=== PATIENT | female | born 1965 | race African-American/Black ===

== ENCOUNTER → 2019-04-01 | Outpatient (CLI) | payer BC, MEDICARE ==
[2015-03-22 07:35] VITALS: BP 136/75
[~2019-04-01] MED LIST: AMLO2.5T5 PO; BECL10.62 IH; BUDE10.22 IH; CITA20TA9 PO; CLON0.1T PO; HYDR-3164 PO; LORA0.5T PO; LOSA-73 PO; MULT1TAB52 PO; NAPR500T8 PO; OXYC1TAB15 PO; VENL37.56 PO
--- NOTE | 2019-04-01 15:14 | RAD ---
Ultrasound-guided left thyroid biopsy, 04/01/2019: History: Left thyroid nodule Previous imaging demonstrated a predominantly solid left thyroid nodule with a cystic component centrally. Under local anesthesia, aseptic conditions and sonographic guidance 4 separate 25-gauge aspirates were obtained from the solid components of this nodule. The materials were sent to pathology for evaluation. Hemostasis was obtained. The patient tolerated the procedure well and left the department in good condition. The pathology results are pending.
--- NOTE | 2019-04-03 17:07 | PATHOLOGY ---
Note [facility] Accession Number: [id number] TESTS RESULT FLAG UNITS REF RANGE LAB Clinician Provided Cytology Information No. of containers..01 Other (Miscellaneous) Source: LEFT THYROID DIAGNOSIS: LEFT THYROID NEGATIVE FOR MALIGNANT CELLS. BETHESDA CATEGORY II. BENIGN FOLLICULAR NODULE. CLUSTERS OF FOLLICULAR CELLS, SCANT COLLOID, AND RED BLOOD CELLS PRESENT. THIS INTERPRETATION INCLUDES EVALUATION OF A CELL BLOCK. Signed out by: 02 Chau Zhang MD, Pathologist NPI- [id number] Performed by: Keo Marshall, Ambulatory Services Representative ([facility]) Gross description: 01 30ML, RED, CLOUDY /LCS FLAG LEGEND: L-Low Normal,H-High Normal,LL-Alert Low,HH-Alert High <-Panic Low,>-Panic High,A-Abnormal,AA-Critical Abnormal Performed at: [address] [place] [address] Finn Edward MD, 02 [facility] [address] [place] [address] Chau Zhang MD, Specimen Comment: A courtesy copy of this report has been sent to Specimen Comment: [phone]. Specimen Comment: Report sent to Specimen Comment: A duplicate report has been generated due to demographic updates. Performed at: [address], [place], [place] [id number] MD Finn Edward MD Phone: [phone]
== END | disposition home or self-care (01) ==
LOC: US 13:31
PROVIDERS: ATTEND Surgery
DX: E04.1 Nontoxic single thyroid nodule (principal)
CPT/HCPCS: 10005; 76942; 88173; 88305

== ENCOUNTER → 2019-04-21 | Outpatient (CLI) | payer BC, MEDICARE ==
[2015-03-22 07:35] VITALS: BP 136/75
[2019-04-21 13:50] LABS: BASO % 0 % (0-3); EOS # 0.1 x10^3/uL (0.0-0.7); EOS % 2 % (0-3); HEMATOCRIT 43.5 % (36.0-47.0); HEMOGLOBIN 14.2 g/dL (12.0-15.5); LYMPH # 2.5 x10^3/uL (1.0-4.8); LYMPH % 48 % (24-48); MEAN CORPUSCULAR HEMOGLOBIN 30 pg (25-35); MEAN CORPUSCULAR HGB CONC 33 g/dL (31-37); MEAN CORPUSCULAR VOLUME 93 fL (79-100); MONO # 0.4 x10^3/uL (0.0-1.1); MONO % 8 % (0-9); NEUT # 2.2 x10^3uL (1.8-7.7); NEUT % 43 % (31-73); PLATELET COUNT 301 x10^3/uL (140-400); RED BLOOD COUNT 4.69 x10^6/uL (3.50-5.40); RED CELL DISTRIBUTION WIDTH 13.9 % (11.5-14.5); WHITE BLOOD COUNT 5.2 x10^3/uL (4.0-11.0)
[2019-04-21 14:02] LABS: ALBUMIN 4.1 g/dL (3.4-5.0); CALCIUM 9.9 mg/dL (8.5-10.1); GFR 69.9; POTASSIUM 3.6 mmol/L (3.5-5.1)
== END | disposition home or self-care (01) ==
LOC: SURGPAT 13:11
PROVIDERS: ATTEND Surgery
DX: Z01.818 Encounter for other preprocedural examination (principal); E04.2 Nontoxic multinodular goiter
CPT/HCPCS: 36415; 80048; 82040; 85025

== ENCOUNTER 2019-04-28 06:27 | Observation (INO) | payer BC, MEDICARE ==
[2019-04-28] VITALS (13 sets, daily range): BP systolic 95–126; BP diastolic 48–92
[~2019-04-28] VITALS: Ht 154.9 cm; Wt 75.5 kg
[~2019-04-28 06:27] MED LIST changes: -OXYC1TAB15 PO
[2019-04-28] MEDS ORDERED: BUPIVAC MPF-EPI 0.5%-1:200000 30 ML VIAL. ONE (06:32)
[2019-04-28] MEDS ORDERED: HYDROmorphone 2 MG/ML VIAL IV PRN ×2 (07:00→09:45)
[2019-04-28] MEDS ORDERED: IV RINGERS,LACTATED 1000ML 1,000 ML IV SCH (07:00)
[2019-04-28] MEDS ORDERED: ONDANSETRON PF 4 MG/2 ML VIAL. IV PRN ×2 (07:00→09:45)
[2019-04-28] MEDS ORDERED: MORPHINE SULFATE 2 MG/ML VIAL. IV PRN (07:00)
[2019-04-28] MEDS ORDERED: fentaNYL PF VIAL 100 MCG/2 ML VIAL IV PRN (07:00)
[2019-04-28] MEDS ORDERED: PROCHLORPERAZINE 10 MG/2 ML VIAL. IV PRN (07:00)
[2019-04-28] MEDS ORDERED: ROCURONIUM 100 MG/10 ML VIAL. ONE (07:34)
[2019-04-28] MEDS ORDERED: MIDAZOLAM HCL/PF 2 MG/2 ML VIAL. ONE (07:34)
[2019-04-28] MEDS ORDERED: fentaNYL PF VIAL 250 MCG/5 ML VIAL ONE (07:35)
[2019-04-28] MEDS ORDERED: PROPOFOL 20 ML IV ONE (08:27)
[2019-04-28] MEDS ORDERED: DEXAMETHASONE SOD PHOS 4 MG/ML VIAL ONE (08:27)
[2019-04-28] MEDS ORDERED: ONDANSETRON PF 4 MG/2 ML VIAL. ONE (08:27)
[2019-04-28] MEDS ORDERED: LIDOCAINE 2% PF 5 ML VIAL. ONE (08:27)
[2019-04-28] MEDS ORDERED: NEOSTIGMINE METHYLSULFATE 5 MG/5 ML SYRINGE. ONE (08:47)
[2019-04-28] MEDS ORDERED: GLYCOPYRROLATE 1 MG/5 ML VIAL. ONE (08:47)
[2019-04-28] MEDS ORDERED: fentaNYL PF VIAL 100 MCG/2 ML VIAL ONE (09:30)
[2019-04-28] MEDS: fentaNYL PF VIAL 100 MCG/2 ML VIAL IV PRN ×2 (09:31→09:42)
[2019-04-28] MEDS ORDERED: diphenhydrAMINE HCL 25 MG CAPSULE PO PRN (09:45)
[2019-04-28] MEDS ORDERED: BENZOCAINE/MENTHOL LOZENGE. PO PRN (09:45)
[2019-04-28] MEDS ORDERED: LORazepam 0.5 MG TABLET PO PRN (09:45)
[2019-04-28] MEDS ORDERED: PHENOL ORAL SPRAY 177ML BOTTLE. PO PRN (09:45)
[2019-04-28] MEDS ORDERED: 0.9 % SODIUM CHLORIDE 10 ML DISP.SYRIN. IV PRN (09:45)
--- NOTE | 2019-04-28 09:54 | PDOC ---
BRIEF OPERATIVE NOTE Date: Apr 28, 2019 Pre-Op Diagnosis left thyroid nodule Post-Op Diagnosis same Procedure Performed left hemithyroidectomy Surgeon Gabriel Extrusion Line Operator Viri StoddardA Anesthesia Type: General (with NIMS) Blood Loss 10cc IV Fluid 600cc Specimens Obtained left thyroid lobe Findings soft nodule left lower lobe Complications none Operative Note WK # [id number] AMERICA LAN MD Apr 28, 2019 09:54
[2019-04-28] MEDS: amLODIPine BESYLATE 5 MG TABLET PO SCH (10:00)
[2019-04-28] MEDS: cloNIDine HCL 0.1 MG TABLET PO SCH ×2 (10:00→21:17)
[2019-04-28] MEDS: LOSARTAN POTASSIUM 25 MG TABLET. PO SCH (10:00)
[2019-04-28] MEDS: DOCUSATE SODIUM 100 MG CAPSULE. PO SCH ×2 (10:00→21:11)
--- NOTE | 2019-04-28 10:19 | OP ---
DATE OF SURGERY: 04/28/2019 PREOPERATIVE DIAGNOSIS: Left thyroid nodule. POSTOPERATIVE DIAGNOSIS: Left thyroid nodule. PROCEDURE: Left hemithyroidectomy. SURGEON: Rodolfo Lan MD ASSISTANTS: Dr. Lopez, TEMO Cisneros ANESTHESIA: General endotracheal with NIMS. BLOOD LOSS: 10. INTRAVENOUS FLUIDS: 600. INDICATIONS: The patient is a 53-year-old lady with a nodule in the left lower lobe of the thyroid, brought for excision. After discussion of treatment options, she prefers removal of the left side only. OPERATIVE FINDINGS: The gland was soft. There was some prominence in the lower aspect consistent with the previously biopsied nodule. DESCRIPTION OF PROCEDURE: The patient brought to the operating suite, given a general endotracheal anesthetic with NIMS and the neck prepped and draped after placed in extension. Necklace incision was made after infiltrating with 0.5% Marcaine and epinephrine. Dissection carried down to the cervical fascia. Superior and inferior skin flaps developed with cautery dissection. Fascia opened in the midline and the strap muscles were reflected off the left side of the gland. Superior pole vessels were isolated, ligated, and divided. The gland was rotated toward the midline by taking down attachments with cautery, LigaSure, or tying with Vicryl as needed. Care was taken to preserve parathyroid tissue and avoid the left recurrent laryngeal nerve. When the lobe was removed, the area checked for hemostasis while the patient given a Valsalva to 30 cm of water. No bleeding seen. Neck taken out of extension and the cervical fascia closed with interrupted inverted 3-0 chromic. Subcutaneous tissue approximated with interrupted inverted 3-0 chromic. Skin closed with a subcuticular 4-0 Prolene. Steri-Strips and a sterile dressing applied. The patient awakened from her anesthetic and taken to the postop area in stable condition where she was able to speak. RODOLFO LAN MD DR: ASHANTI/baldemar JOB#: [id number] / [id number]
--- NOTE | 2019-04-28 10:30 | NUR ---
Patient arrived per bed around 1012. Trell at bedside. SCDs and ALEA roque on. Patient on 2L oxygen per NC. Pain rating at a 6 in neck with recent medication given in PACU. She states she already took her BP medications this morning so they were not given again upon admission to the floor. She is alert and oriented appropriately at her baseline per but is still quite drowsy from surgery and medications. Dressing to left neck dry/intact. IV in left hand patent with fluids infusing. Will continue to monitor.
[2019-04-28] MEDS: ENOXAPARIN 40 MG/0.4 ML SYRINGE. SQ SCH (10:37)
[2019-04-28] MEDS: POTASSIUM CL 20MEQ-0.45% NACL 1,000 ML IV SCH (10:38)
[2019-04-28] MEDS: oxyCODONE/APAP 5/325 1 TAB TABLET PO PRN ×3 (11:19→20:13)
[2019-04-28] MEDS: ALBUTEROL SULFATE 2.5 MG/3 ML NEBU. NEB SCH ×2 (11:31→20:19)
[2019-04-28] MEDS: BUDESONIDE 0.5 MG/2 ML NEBU. NEB SCH ×2 (11:31→20:20)
[2019-04-28] MEDS: VENLAFAXINE 75 MG TABLET. PO SCH ×2 (12:13→21:11)
[2019-04-28] MEDS ORDERED: BECLOMETHASONE DIPROPIONATE 10.6 GM IH SCH (21:00)
[2019-04-29] MEDS: oxyCODONE/APAP 5/325 1 TAB TABLET PO PRN ×4 (00:06→12:42)
[2019-04-29] MEDS: POTASSIUM CL 20MEQ-0.45% NACL 1,000 ML IV SCH ×2 (00:06→12:18)
[2019-04-29 02:22] VITALS: BP 107/62
[2019-04-29 02:59] VITALS: BP 118/72
[2019-04-29 06:21] VITALS: BP 111/63
[2019-04-29] MEDS: ALBUTEROL SULFATE 2.5 MG/3 ML NEBU. NEB SCH ×3 (07:14→12:48)
[2019-04-29] MEDS: BUDESONIDE 0.5 MG/2 ML NEBU. NEB SCH (07:14)
[2019-04-29] MEDS: LOSARTAN POTASSIUM 25 MG TABLET. PO SCH (09:00)
[2019-04-29] MEDS ORDERED: NON FORMULARY ITEM (Budesonide/Formoterol Fumarate (Symbicort 80-4.5 Mcg Inhaler) 2 PUFF) IH SCH (09:00)
[2019-04-29] MEDS: cloNIDine HCL 0.1 MG TABLET PO SCH (09:00)
[2019-04-29] MEDS: amLODIPine BESYLATE 5 MG TABLET PO SCH (09:00)
--- NOTE | 2019-04-29 09:00 | NUR ---
Pt refused bp medications this am. BP 110/66 states that is low for her. Will recheck BP at noon.
[2019-04-29] MEDS: DOCUSATE SODIUM 100 MG CAPSULE. PO SCH (09:01)
[2019-04-29] MEDS: VENLAFAXINE 75 MG TABLET. PO SCH (09:02)
[2019-04-29] MEDS: ENOXAPARIN 40 MG/0.4 ML SYRINGE. SQ SCH (09:04)
--- NOTE | 2019-04-29 09:05 | PDOC ---
VERONIQUE GAMBOA APRN 04/29/19 0905: SURGICAL PROGRESS NOTE Subjective tolerating diet, able to swallow ok some voice hoarseness neck sore Vital Signs Vital Signs Date Time Temp Pulse Resp B/P (MAP) Pulse Ox O2 Delivery O2 Flow Rate FiO2 04/29/19 07:14 94 Room Air 04/29/19 06:21 98.0 79 20 111/63 (79) 98.0 04/29/19 05:15 2.0 I&O Intake and Output 04/29/19 06:59 Intake Total 1400 ml Output Total 3110 ml Balance -1710 ml Intake Oral 750 ml IV Total 650 ml Output Urine Total 3100 ml Estimated Blood Loss 10 ml General: Alert, Oriented X3, Cooperative, No acute distress HEENT: Other (incision c/d/i, no erythema, no significant swelling ) Assessment/Plan s/p left hemithyroidectomy home after lunch FU 1 week script on chart AMERICA LAN MD 04/29/19 1209: SURGICAL PROGRESS NOTE Assessment/Plan pt seen as above f/u ten days VERONIQUE GAMBOA APRN Apr 29, 2019 09:05 AMERICA LAN MD Apr 29, 2019 12:09
[2019-04-29] MEDS ORDERED: OXYC1TAB15 PO (09:06)
--- NOTE | 2019-04-29 09:08 | DISCH ---
DISCHARGE INSTRUCTIONS Condition on Discharge Condition on Discharge: Stable Activity After Discharge Activity Instructions for Disc: Activity as tolerated, Avoid exertion Lifting Instructions after Dis: No heavy lifting, No pulling or pushing, Do not lift >10 pounds Driving Instructions after Dis: Do not drive today (no driving while taking narcotics ) Weight Bearing Status after Di: No restrictions Diet after Discharge Diet after Discharge: GI Soft, Regular Wound Incision Care Wound/Incision Care: May get incision wet, No wound care needed Contacting the [facility] after DC Call your doctor for: Concerns you may have Follow-Up Follow up with: Dr Rios 1 week, call to schedule [phone] Treatment/Equipment after DC Adaptive Equipment Issued: None VERONIQUE GAMBOA APRN Apr 29, 2019 09:08
[2019-04-29 11:15] VITALS: BP 116/60
--- NOTE | 2019-04-29 12:11 | PDOC3 ---
Discharge Summary Visit Information Date of Admission: Apr 28, 2019 Date of Discharge: Apr 29, 2019 Admitting Diagnosis Comment: left thyroid nodule Final Diagnosis same Brief Hospital Course Allergies Allergies Coded Allergies Type Severity Reaction Last Updated Verified nickel Allergy Intermediate Rash 04/28/19 Yes sulfamethoxazole Adverse Reaction Intermediate Nausea and Vomiting 04/29/19 Yes trimethoprim Adverse Reaction Intermediate Nausea and Vomiting 04/29/19 Yes Vital Signs Vital Signs Date Time Temp Pulse Resp B/P (MAP) Pulse Ox O2 Delivery O2 Flow Rate FiO2 04/29/19 11:15 97.8 76 18 116/60 (78) 96 Room Air 97.8 04/29/19 05:15 2.0 Brief Hospital Course Ms. Mari is a 53 old female who presented with left sided thyroid nodule for resection. Underwent a left hemithyroidectomy. Went home POD 1 Discharge Information Condition at Discharge: Stable Follow Up: As Needed Disposition/Orders: D/C to Home Scheduled Amlodipine Besylate (Amlodipine Besylate) 2.5 Mg Tablet, 2.5 MG PO DAILY for htn, (Reported) Entered as Reported by: LINO LIU on 04/21/191334 Last Action: Converted on 04/28/19943 by AMERICA LAN Beclomethasone Dipropionate (Qvar Redihaler) 10.6 Gm Hfa.aeroba, 10.6 GM IH BID for asthma, (Reported) Entered as Reported by: LINO LIU on 04/21/19 1403 Last Action: Converted on 04/28/19943 by AMERICA LAN Budesonide/Formoterol Fumarate (Symbicort 80-4.5 Mcg Inhaler) 10.2 Gm Hfa.aer.ad, 2 PUFF IH DAILY for asthma, #10.2 Ref 5 (Reported) Entered as Reported by: LINO LIU on 04/21/19 1404 Last Action: Converted on 04/28/19943 by AMERICA LAN Clonidine Hcl (Clonidine Hcl) 0.1 Mg Tablet, 0.1 MG PO BID for htn, (Reported) Entered as Reported by: LINO LIU on 04/21/191335 Last Action: Continued on 04/28/19943 by AMERICA LAN Losartan Potassium (Losartan Potassium) 50 Mg Tablet, 25 MG PO DAILY for HYPERTENSION, (Reported) Entered as Reported by: LINO LIU on 6/11/19 1334 Last Action: Continued on 04/28/19943 by AMERICA LAN Multivitamin (Multivitamins) 1 Each Tablet, 1 TAB PO DAILY for vitamin, #90 Ref 3 (Reported) Entered as Reported by: LINO LIU on 04/21/191336 Last Action: HELD on 04/28/19943 by AMERICA LAN Venlafaxine Hcl (Venlafaxine Hcl) 37.5 Mg Tablet, 2 TAB PO BID for hot flashes, #60 (Reported) Entered as Reported by: LINO LIU on 04/21/191335 Last Action: Converted on 04/28/19943 by AMERICA LAN Scheduled PRN Lorazepam (Lorazepam) 0.5 Mg Tablet, 0.5 MG PO TID PRN for ANXIETY / AGITATION, (Reported) Entered as Reported by: BRANDON MANRIQUEZ on 10/20/14 1431 Last Action: Continued on 04/28/19943 by AMERICA LAN Oxycodone/Apap 5-325 (Percocet 5-325 Mg Tablet ) 1 Each Tablet, 1 TAB PO PRN Q4HRS PRN for MILD PAIN, 1ST CHOICE, #30 Ref 0 Prescribed by: Palak Mckinney on 04/29/19 0906 AMERICA LAN MD Apr 29, 2019 12:11
--- NOTE | 2019-04-29 13:19 | NUR ---
Discharge instruction given with prescriptions. Answered questions or concerns. Verbalized understanding. Pt discharged home accompanied by spouse.
--- NOTE | 2019-04-30 16:06 | PATHOLOGY ---
[facility] Accession Number: [id number] . 01 Material submitted: . thyroid gland - LEFT THYROID LOBE. Modifiers: left . 01 Clinical history: . Left thyroid nodule . 02 Diagnosis: Thyroid lobe, left hemithyroidectomy: - Adenomatous nodule. - No parathyroid glands identified. (JPM:johnathon 04/30/2019) QMS/04/30/2019 . 02 Comment: The entire nodule is submitted for histologic evaluation. There is no evidence of malignancy. (JPM:johnathon; 04/30/2019) . 02 Electronically signed: . Chau Zhang MD, Pathologist NPI- [id number] . 01 Gross description: . The specimen is received in formalin, labeled "María Elena Mari, left thyroid lobe" and consists of an oriented 19 g lobe of thyroid with a stitch at the upper pole. It measures 6.0 x 2.6 x 2.2 cm and is inked black. The capsule is lopez-brown and intact with cautery on the posterior aspect. It is sectioned from superior to inferior revealing a hemorrhagic/cystic nodule measuring 3.0 x 1.7 x 1.5 cm which grossly abuts the capsule. The rest of the parenchyma consists of soft brown-red parenchyma and no additional masses or lesions. The specimen is representatively submitted to include the entire nodule as follows: . A1-A7: Entire nodule from superior-inferior A8: Uninvolved parenchyma (SDY; 04/29/2019) SYU/SYU . 02 Pathologist provided ICD-10: E04.1 . 02 CPT . 035380 Specimen Comment: A courtesy copy of this report has been sent to Specimen Comment: [phone], . Specimen Comment: Report sent to / DR STRINGER Performed at: [address] [facility] [address], [place], [place] [id number] MD Finn Edward MD Phone: [phone] Performed at: 02 [facility] [address] [place], [place] [id number] MD Chau Zhang MD Phone: [phone]
== END 2019-04-29 13:00 | disposition home or self-care (01) ==
LOC: SURG 06:27 → 4 SOUTHEST 09:10
PROVIDERS: ADMIT Surgery; ATTEND Surgery
DX: E04.1 Nontoxic single thyroid nodule (principal); K21.9 Gastro-esophageal reflux disease without esophagitis; F32.9 Major depressive disorder, single episode, unspecified; F41.9 Anxiety disorder, unspecified; Z98.890 Other specified postprocedural states
CPT/HCPCS: 60220; 88307; 94640; 94760; 96372; A7015; G0378; G0379; J0690; J0780; J1100; J1650; J2001; J2250; J2270; J2704; J2710; J3010; J3490; J7613; J7626; J2405